=== PATIENT | male | born 1965 | race Caucasian/White ===

== ENCOUNTER → 2021-10-08 | Outpatient (REF) | LOC: M PLAIMG 11:26 | PROVIDERS: ATTEND Internal Medicine | DX: M54.50 Low back pain, unspecified (principal); M77.31 Calcaneal spur, right foot; M19.92 Post-traumatic osteoarthritis, unspecified site; M51.36 Other intervertebral disc degeneration, lumbar region; M51.37 Other intervertebral disc degeneration, lumbosacral region ==